=== PATIENT | male | born 1985 | race Hispanic/Latino ===

== ENCOUNTER 2021-04-02 20:06 | Emergency (ER) | payer SELFPAY ==
[2021-04-02 21:04] LABS: Absolute Lymphocytes (CBC) 1.4 K/uL (0.7-4.9); Basophils % 0.8 % (0-1.3); Hematocrit 51.8 % (39.6-49.0); Lymphocytes % 9.6 % (15.3-44.8); RBC Red Blood Cell Count 5.49 M/uL (4.33-5.43)
[2021-04-02] MEDS ORDERED: ONDANSETRON 4 MG/2 ML VIAL ONE (21:08)
[2021-04-02] MEDS ORDERED: NA CHLORIDE 0.9% 1,000 ML ONE (21:08)
[2021-04-02 21:37] LABS: Bilirubin Direct 0.2 mg/dL (0-0.2); Bilirubin Total 0.9 mg/dL (0.2-1.0); Protein, Total 10.7 g/dL (6.4-8.2)
[2021-04-02 21:45] LABS: Potassium 4.5 mmol/L (3.5-5.1)
[2021-04-02 21:47] LABS: Albumin 6.2 g/dL (3.4-5.0)
[2021-04-02] MEDS ORDERED: NA CHLORIDE 0.9% 2,000 ML ONE (22:45)
[2021-04-03 00:34] LABS: Potassium 4.3 mmol/L (3.5-5.1)
--- NOTE | 2021-04-03 00:49 | ER ---
Nurse's Notes [facility] Name: Shukri Giang Age: 35 yrs Sex: Male : 1985 Arrival Date: 04/02/2021 Time: 20:10 Bed 28 Private MD: Diagnosis: Dehydration;Heat exhaustion, unspecified, initial encounter Presentation: 04/02 20:36 Chief complaint: Patient states: Nausea, vomiting, cramping since 1700. Pt stated he kg works outside [employer] all day. Coronavirus screen: Client denies travel out of the [place] in the last 14 days. At this time, unable to obtain information related to travel outside the [place] Client presents with at least one sign or symptom that may indicate coronavirus-19. Standard/surgical mask placed on the client. Provider contacted for isolation considerations. Ebola Screen: Patient negative for fever greater than or equal to 101.5 degrees Fahrenheit, and additional compatible Ebola Virus Disease symptoms Patient denies exposure to infectious person. Patient denies travel to an Ebola-affected area in the 21 days before illness onset. Initial Sepsis Screen: Does the patient meet any 2 criteria? No. Patient's initial sepsis screen is negative. Does the patient have a suspected source of infection? No. Patient's initial sepsis screen is negative. Risk Assessment: Do you want to hurt yourself or someone else? Patient reports no desire to harm self or others. Onset of symptoms was April 02, 2021 at 17:00. 20:36 Method Of Arrival: Wheelchair kg 20:36 Acuity: HERBERT 3 kg Triage Assessment: 20:39 General: Appears uncomfortable, Behavior is calm, cooperative, appropriate for age, kg quiet. Pain: Complains of pain in anterior aspect of right lateral abdomen and posterior aspect of right lateral abdomen Pain radiates to Generalized. GI: Pt is actively vomiting bile, undigested food, Reports nausea, vomiting. Derm: No deficits noted. Historical: - Allergies: 20:39 No Known Allergies; kg - Home Meds: 20:39 None [Active]; kg - PMHx: 20:39 None; kg - PSHx: 20:39 None; kg - Immunization history:: Adult Immunizations not up to date, Client reports having NOT received the Covid vaccine. - Social history:: Patient uses alcohol, only on a social basis. street drugs, marijuana, Smoking status: Patient denies any tobacco usage or history of. Screenin:31 Abuse screen: Denies threats or abuse. Denies injuries from another. Nutritional lp1 screening: No deficits noted. Tuberculosis screening: No symptoms or risk factors identified. Fall Risk None identified. Assessment: 22:30 Reassessment: Patient states feeling better. Patient states symptoms have improved. lp1 General: Appears in no apparent distress. Behavior is calm, cooperative. Pain: Denies pain. Neuro: Level of Consciousness is awake, alert, obeys commands, Oriented to person, place, time, situation. Cardiovascular: Patient's skin is warm and dry. Respiratory: Respiratory effort is even, unlabored. GI: No signs and/or symptoms were reported involving the gastrointestinal system. : No signs and/or symptoms were reported regarding the genitourinary system. EENT: No signs and/or symptoms were reported regarding the EENT system. Derm: Skin is pink, warm \T\ dry. Musculoskeletal: No deficits noted. 04/03 00:10 Reassessment: Patient appears in no apparent distress at this time. Patient is alert, lp1 oriented x 3, equal unlabored respirations, skin warm/dry/pink. Patient denies pain at this time. Patient states feeling better. Vital Signs: 04/02 20:36 BP 131 / 82; Pulse 102; Resp 20; Temp 97.5(O); Pulse Ox 100% ; Weight 70.31 kg (R); kg Height 5 ft. 9 in. (175.26 cm); Pain 9/10; 22:30 BP 106 / 71; Pulse 69; Resp 16; Pulse Ox 99% on R/A; lp1 04/03 00:00 BP 122 / 66; Pulse 78; Resp 16; Pulse Ox 100% on R/A; lp1 04/02 20:36 Body Mass Index 22.89 (70.31 kg, 175.26 cm) kg ED Course: 04/02 20:10 Patient arrived in ED. cf2 20:39 Triage completed. kg 20:39 Arm band placed on right wrist. kg 20:43 Inserted saline lock: 20 gauge in right antecubital area, using aseptic technique. kg ,using aseptic technique. Karoline FLORENCE Blood collected. 21:49 Felicia Mota is Attending Physician. sp3 22:31 Patient has correct armband on for positive identification. lp1 23:12 Suri Padron, RN is Primary Nurse. 3 04/03 00:00 Repeat lab(s) drawn. by me, sent to lab. lp1 01:07 No provider procedures requiring assistance completed. IV discontinued, No lp1 redness/swelling at site. Pressure dressing applied. Administered Medications: 04/02 20:46 Drug: NS 0.9% 1000 ml Route: IV; Rate: 1000 ml; Site: right antecubital; kg 20:46 Drug: Zofran (Ondansetron) 4 mg Route: IVP; Site: right antecubital; kg 23:00 Follow up: Response: Marked relief of symptoms lp1 22:30 Drug: NS 0.9% 2000 ml Route: IV; Rate: 1 bolus; Site: right forearm; lp1 04/03 00:14 Follow up: IV Status: Completed infusion; IV Intake: 2000ml lp1 Intake: 00:14 IV: 2000ml; Total: 2000ml. lp1 Outcome: 00:48 Discharge ordered by MD. sp3 01:07 Discharged to home ambulatory, with friend. lp1 01:07 Condition: good 01:07 Discharge instructions given to patient, Instructed on discharge instructions, follow up and referral plans. Demonstrated understanding of instructions, follow-up care. 01:07 Patient left the ED. lp1 Signatures: Yoselyn Gates, RN RN lp1 Daniela Cason cf2 Ariane East RN RN kg Felicia Mota sp3 Suri Padron, NAMAN RN [facility]
--- NOTE | 2021-04-03 00:49 | EDPHYS ---
Physician Documentation [facility] Name: Shukri Giang Age: 35 yrs Sex: Male : 1985 Arrival Date: 04/02/2021 Time: 20:10 Bed 28 Private MD: ED Physician Felicia Mota HPI: 04/02 22:35 This 35 yrs old Male presents to ER via Wheelchair with complaints of Heat sp3 Exposure, CHILLS, SWEATING, SHAKING. 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 Patient initially started to have near syncopal type symptoms to which she reported to his boss who urged him to continue working. Patient continued to have symptoms after what he presents to the ED. Patient does state he has lower urine output despite taking p.o. water and watermelon. Patient denies taking any electrolyte drinks and denies any full syncope symptoms. . Historical: - Allergies: 20:39 No Known Allergies; kg - Home Meds: 20:39 None [Active]; kg - PMHx: 20:39 None; kg - PSHx: 20:39 None; kg - Immunization history:: Adult Immunizations not up to date, Client reports having NOT received the Covid vaccine. - Social history:: Patient uses alcohol, only on a social basis. street drugs, marijuana, Smoking status: Patient denies any tobacco usage or history of. ROS: 22:36 Eyes: Negative for injury, pain, redness, and discharge, ENT: Negative for injury, sp3 pain, and discharge, Neck: Negative for injury, pain, and swelling, Cardiovascular: Negative for chest pain, palpitations, and edema, Respiratory: Negative for shortness of breath, cough, wheezing, and pleuritic chest pain, Abdomen/GI: Negative for abdominal pain, nausea, vomiting, diarrhea, and constipation, Back: Negative for injury and pain, MS/Extremity: Negative for injury and deformity, Skin: Negative for injury, rash, and discoloration, Neuro: Negative for headache, weakness, numbness, tingling, and seizure, Allergy/Immunology: Negative for hives, rash, and allergies, Endocrine: Negative for neck swelling, polydipsia, polyuria, polyphagia, and marked weight changes. 22:36 Constitutional: Positive for fatigue, malaise, Negative for chills, fever. 22:37 All other systems are negative. sp3 Exam: 22:37 Constitutional: This is a well developed, well nourished patient who is awake, alert, sp3 and in no acute distress. Head/Face: Normocephalic, atraumatic. Eyes: Pupils equal round and reactive to light, extra-ocular motions intact. Lids and lashes normal. Conjunctiva and sclera are non-icteric and not injected. Cornea within normal limits. Periorbital areas with no swelling, redness, or edema. Neck: Trachea midline, no thyromegaly or masses palpated, and no cervical lymphadenopathy. Supple, full range of motion without nuchal rigidity, or vertebral point tenderness. No Meningismus. Chest/axilla: Normal chest wall appearance and motion. Nontender with no deformity. No lesions are appreciated. Cardiovascular: Regular rate and rhythm with a normal S1 and S2. No gallops, murmurs, or rubs. Normal PMI, no JVD. No pulse deficits. Respiratory: Lungs have equal breath sounds bilaterally, clear to auscultation and percussion. No rales, rhonchi or wheezes noted. No increased work of breathing, no retractions or nasal flaring. Abdomen/GI: Soft, non-tender, with normal bowel sounds. No distension or tympany. No guarding or rebound. No evidence of tenderness throughout. Back: No spinal tenderness. No costovertebral tenderness. Full range of motion. Skin: Warm, dry with normal turgor. Normal color with no rashes, no lesions, and no evidence of cellulitis. MS/ Extremity: Pulses equal, no cyanosis. Neurovascular intact. Full, normal range of motion. Neuro: Awake and alert, GCS 15, oriented to person, place, time, and situation. Cranial nerves II-XII grossly intact. Motor strength 5/5 in all extremities. Sensory grossly intact. Cerebellar exam normal. Normal gait. Psych: Awake, alert, with orientation to person, place and time. Behavior, mood, and affect are within normal limits. Vital Signs: 20:36 BP 131 / 82; Pulse 102; Resp 20; Temp 97.5(O); Pulse Ox 100% ; Weight 70.31 kg (R); kg Height 5 ft. 9 in. (175.26 cm); Pain 9/10; 22:30 BP 106 / 71; Pulse 69; Resp 16; Pulse Ox 99% on R/A; lp1 04/03 00:00 BP 122 / 66; Pulse 78; Resp 16; Pulse Ox 100% on R/A; lp1 04/02 20:36 Body Mass Index 22.89 (70.31 kg, 175.26 cm) kg MDM: 04/02 22:01 Patient medically screened. sp3 22:37 Data reviewed: vital signs, nurses notes, lab test result(s). sp3 22:38 ED course: 35-year-old male with heat exhaustion and prerenal azotemia/renal failure. sp3 Patient has received 1 L of normal saline already and I will administer 2 L more for total of 3 L. Hemoconcentration of his CBC also indicative of dehydration. Creatinine is 2.46. After fluid administration, we will recheck basic metabolic panel and if improved will discharge home with clear education and instructions on how to further manage his body during heat and strenuous activity. Patient acknowledges and is grateful for the treatment.. 04/03 00:46 ED course: Creatinine is 1.45 and remainder of BMP is unremarkable. Patient feels sp3 better and we will discharge home at this time with general precautions for heat related illness and education on proper hydration.. 08 20:45 Order name: Basic Metabolic Panel; Complete Time: 21:49 kg 04/02 20:45 Order name: CBC with Diff; Complete Time: 21:49 kg 04/02 20:45 Order name: Hepatic Function; Complete Time: 21:49 kg 04/02 20:45 Order name: Lipase; Complete Time: 21:49 kg 04/02 22:09 Order name: Basic Metabolic Panel: Send after 2 L NS Bolus; Complete Time: 01:07 sp3 04/02 20:45 Order name: IV Saline Lock; Complete Time: 20:46 kg 04/02 20:45 Order name: Labs collected and sent; Complete Time: 20:46 kg Administered Medications: 04/02 20:46 Drug: NS 0.9% 1000 ml Route: IV; Rate: 1000 ml; Site: right antecubital; kg 20:46 Drug: Zofran (Ondansetron) 4 mg Route: IVP; Site: right antecubital; kg 23:00 Follow up: Response: Marked relief of symptoms lp1 22:30 Drug: NS 0.9% 2000 ml Route: IV; Rate: 1 bolus; Site: right forearm; lp1 04/03 00:14 Follow up: IV Status: Completed infusion; IV Intake: 2000ml lp1 Disposition Summary: 04/03/21 00:48 Discharge Ordered Location: Home sp3 Condition: Stable sp3 Diagnosis - Dehydration sp3 - Heat exhaustion, unspecified, initial encounter sp3 Followup: sp3 - With: Private Physician - When: - Reason: Re-evaluation by your physician Discharge Instructions: - Discharge Summary Sheet sp3 - Heat Exhaustion sp3 Forms: - Medication Reconciliation Form sp3 - Thank You Letter sp3 - Antibiotic Education sp3 - Prescription Opioid Use sp3 Signatures: Dispatcher [employer] EDYoselyn Hazel RN RN lp1 Moris Johnson, DRY CLEANING MACHINE OPERATOR HELPER-C DRY CLEANING MACHINE OPERATOR HELPER-[facility]1 Ariane East RN RN Felicia Mota sp3
[2021-04-03 03:08] VITALS: BP 122/66; O2SAT 100
[2021-04-03 03:18] VITALS: TEMP 97.5
== END 2021-04-03 01:07 | disposition home or self-care (01) ==
LOC: ER 20:06
DX: E86.0 Dehydration (principal)
CPT/HCPCS: 36415; 80048; 80076; 83690; 85025; 96361; 96374; 99283; J2405; J7030